=== PATIENT | female | born 1955 | race Two or more races ===

== ENCOUNTER 2024-09-11 13:45 | Outpatient (RCR) | payer OTHER, MEDICAID, SELFPAY ==
--- NOTE | 2024-09-11 14:16 | CTCFLWUP_ITS ---
Patient: ALTHEA COPPOLA : 1955 Page 7 of 8 FOLLOW UP NOTE DATE OF SERVICE: 09/11/2024 NAME: ALTHEA COPPOLA ACCOUNT: [id number] : 1955 AGE: 68 REASON FOR VISIT: Follow up INTERVAL HX Patient is doing well. She have no complains. She says she is happy that she does not have cancer anymore and does not want any biopsy at this time . she also do not want any chemotherapy . ONCOLOGY HISTORY: DATE OF DIAGNOSIS: 11/2023 colon adenocarcinoma STAGE/TNM: 11/25 stage 2 colon cancer TREATMENT HISTORY: Care?Plan Start?Date Cycle Day Intent No adjuvant therapy accepted by patient. OTHER MEDICAL HISTORY/CONDITIONS: Adenocarcinoma splenic flexure - 11/2023 HTN Hyperlipidemia Splenic flexure colectomy with side to side intracorporeal colocolonic anastaoosis 11/30/23 Right partial thyroidectomy - 7-8 yrs ago Tubal ligation - 29 yrs ago INTERVAL HISTORY: Althea Coppola is a 68-year-old S[place] speaking female with longstanding history of inter mittent rectal bleeding thought to be due to hemorrhoids had colonoscopy recently 09/05/2023: Colonoscopy? 10/19/2023: CT scan of the abdomen and pelvis with contrast 11/30/2023: Ms. Coppola had robotic assisted splenic flexure colectomy with site to side intracorpo real colocolonic anastomosis. 12/28/2023: MRI of the abdomen with IV contrast 01/23/2024: CT scan of the abdomen and pelvis with IV contrast? 01/23/2024: CT-guided percutaneous biopsy of the left lobe liver lesion? 01/25/2024: PET/CT scan? 01/15/2024: MRI of the orbits, face and neck with and without contrast? 04/10/2024: Left axilla ultrasound-guided biopsy? 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 Biopsy negative (01/23/2024) Hypertension. Hypercholesterolemia. DATE OF DIAGNOSIS: STAGE/TNM: TREATMENT HISTORY: Care?Plan Start?Date Cycle Day Intent OTHER MEDICAL HISTORY/CONDITIONS: Adenocarcinoma splenic flexure - 11/2023 HTN Hyperlipidemia Splenic flexure colectomy with side to side intracorporeal colocolonic anastaoosis 11/30/23 Right partial thyroidectomy - 7-8 yrs ago Tubal ligation - 29 yrs ago FAMILY HISTORY: Mother:?Brain?-?dx?50's Children:?Daughter?-?Thyroid?-?dx?31 SOCIAL HISTORY: Occupational?History:?Retired Education?Level:?Completed something less than 8th grade Marital?Status:? Tobacco?Use:?Denies ETOH?Use:?Denies Drug?Note:?Denies Social?History?Note:?Lives?with? 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 amlodipine - 10 mg 1 tab Daily 2. aspirin - 81 mg 1 tab Daily 3. atenolol - 50 mg 1 tab Daily 4. Cardio [place] Benefits - 667 mg (280 mg- 280 mg-107 mg) 1 Capsule Daily Medications Last Reconciled by Theresa Flores MA on 09/11/2024 ALLERGIES: atorvastatin; atorvastatin REVIEW OF SYSTEMS: A complete 14-point review of systems was performed and is negative except as noted in interval histo ry. PHYSICAL EXAMINATION: VITAL SIGNS: PAIN: 0 - No pain ECOG Performance Status: 1 - Symptomatic; ambulatory; restricted in strenuous activity Alert and oriented x4 CHEST: Clear to auscultation. No wheezes or rales audible. CARDIAC: Rhythm regular, no murmurs or gallops present. ABDOMEN: She has well-healing incisions on the abdomen. No signs of infection. Soft. No hepatomegaly. No splenomegaly. EXTREMITIES: No pedal edema or cyanosis. LABORATORY DATA: I have personally reviewed and interpreted each of the patient?s relevant lab tests, abnormal finding s are below: Date 01/01/24 ??WHITE?BLOOD?COUNT?(Thou/mm3) 9.7 ??RED?BLOOD?COUNT?(Miln/mm3) 4.71 ??HEMOGLOBIN?(gm/dl) 12.9 ??HEMATOCRIT?(%) 39.7 ??PLATELET?COUNT?(Thou/mm3) 232 ??NEUTROPHILS?%,?AUTO?(%) 63 ??LYMPH?%,?AUTO?(%) 28 ??NEUTROPHILS,?AUTO?(Thou/mm3) 6.1 IMPRESSION/PLAN: Stage II colon carcinoma s/p resection of colon cancer biopsy of liver lesion is negative MRI repeat ordered for 11/2024 Will get naterra to see residual disease as imaging have been unclear ORDERS: Mri cbc cmp and naterra RETURN TO CLINIC: After mri and naterra results BILLING AND COMPLIANCE: I reviewed external records from providers outside my specialty as summarized above. I spent a total of 50 minutes on this patient?s care on the day of their visit excluding time spent related to any bi lled procedures. This time includes time spent with the patient as well as time spent documenting in the medical record, reviewing patients records and tests, obtaining history, placing orders, communi cating with other healthcare professionals, counseling the patient, family or caregiver, and/or care coordination for the diagnoses above. Electronically Signed by: {Object.Sanct_ID*[email or web address]@M}, {Object.Sanct_ID*PnP.Suffix@U} D: {Object.Sanct_Date} T: {Object.Sanct_Time} CC: PCP: Casandra Flores Referring: Justus Del Rio This document was completed utilizing speech recognition software. Grammatical errors, random word in sertions, pronoun errors, and incomplete sentences are an occasional consequence of this system due t o software limitations, ambient noise, and hardware issues. Any formal questions or concerns about th e content, text or information contained within the body of this dictation should be directly address ed to the provider for clarification.
== END 2024-10-01 23:59 | disposition home or self-care (01) ==
LOC: SCTC 13:45
PROVIDERS: PCP Registered Nurse Community Health; Referring Provider Internal Medicine Hematology & Oncology; Visit Provider Internal Medicine Hematology & Oncology
DX: C18.5 Malignant neoplasm of splenic flexure (principal); Z90.49 Acquired absence of other specified parts of digestive tract
CPT/HCPCS: 99212; Q3014; G0463

== ENCOUNTER → 2024-09-30 | Outpatient (CLI) | payer OTHER, MEDICAID, SELFPAY ==
--- NOTE | 2024-09-30 12:20 | XR_ITS ---
Examination: Bone densitometry Date and time of exam:September 30, 2024 1231 hours INDICATIONS: Menopause age 51 vitamin D one year Technique: Lumbar spine and hip total bone mineralization values of an calculated. Peak reference and age match control results have been displayed. Findings: Lumbar spine total bone mineralization is0.758 gm/cm2. This is 2.6 standard deviations below peak reference. This is 0.7 standard deviations below age-matched controls. Hip total bone mineralization is 0.822 gm/cm2 This is 1.0 standard deviations below peak reference. This is 0.3 standard deviations above age-matched controls Impression: There is osteoporosis based on lumbar spine measurements. There is osteopenia based on hip measurements
== END | disposition home or self-care (01) ==
PROVIDERS: PCP Registered Nurse Community Health; Referring Provider Registered Nurse Community Health; Visit Provider Registered Nurse Community Health
DX: Z13.820 Encounter for screening for osteoporosis (principal); M81.0 Age-related osteoporosis without current pathological fracture; M85.88 Other specified disorders of bone density and structure, other site
CPT/HCPCS: 77080

== ENCOUNTER 2024-10-10 09:05 | Outpatient (RCR) | payer OTHER, MEDICAID, SELFPAY | END 2024-11-01 23:59 | disposition home or self-care (01) | LOC: SCTC 09:05 | PROVIDERS: PCP Registered Nurse Community Health; Referring Provider Registered Nurse Community Health; Visit Provider Internal Medicine Hematology & Oncology | DX: Z76.89 Persons encountering health services in other specified circumstances (principal) | CPT/HCPCS: 36591 ==

== ENCOUNTER → 2024-10-25 | Outpatient (CLI) | payer OTHER, MEDICAID, SELFPAY ==
--- NOTE | 2024-10-25 09:00 | XR_ITS ---
Examination: Screening digital mammography, bilateral Computer aided detection 3-D breast Tomosynthesis, bilateral Date and time of exam: October 25, 2024 0905 hours Compared to mammograms dated joint 2013 Indication: Screening Technique: Nonmagnified MLO, CC views of the breasts to been obtained, reconstructed from 3-D Tomosynthesis images. R2 computer aided detection program utilized for evaluation of suspicious masses and/or abnormal calcifications. 3-D Tomosynthesis images obtained. Findings: Scattered areas of fibroglandular density. Benign calcifications. No interval suspicious masses Impression: BI-RADS category II: Benign Findings. Recommend 1 year follow-up mammogram.
== END | disposition home or self-care (01) ==
LOC: CDIM 08:58
PROVIDERS: Referring Provider Registered Nurse Community Health; Visit Provider Registered Nurse Community Health
DX: Z12.31 Encounter for screening mammogram for malignant neoplasm of breast (principal); R92.323 Mammographic fibroglandular density, bilateral breasts; R92.1 Mammographic calcification found on diagnostic imaging of breast
CPT/HCPCS: 77063; 77067

== ENCOUNTER 2024-11-04 13:53 | Outpatient (AMB) | payer OTHER, MEDICAID, SELFPAY ==
--- NOTE | 2024-11-04 14:05 | GSCOFFNT_ITS ---
V[facility] Signs - [facility] 11/04/24 14:06 Height 1.57 m Height Method Stated Weight 72.263 kg Weight Measurement Method Standing Scale BMI 29.2 BP 171/94 H Blood Pressure Source Automatic Cuff Blood Pressure Location Left Upper Arm Position Sitting Respiration 19 Pulse 102 H Pulse Source Monitor Temp 97.6 F Temp Source Temporal Artery Scan Pulse Oximetry (%) 96 Oxygen Delivery Method Room Air Med/Allergies Allergies & Medications Allergies atorvastatin Allergy (Severe, Verified 11/04/24 14:07) Swelling of the Eye iodine Allergy (Intermediate, Verified 11/04/24 14:07) Hives Medication Reconciliation amlodipine 10 mg tablet (Norvasc) 10 mg PO HS #0 tabs 05/23/16 [History Confirmed 01/23/24] aspirin 81 mg tablet,delayed release (Aspir-Low) 81 mg PO QDAY ##30 05/25/16 [Rx Confirmed 01/23/24] Held on 01/23/24. Instructions: Resume on 01/26/24. NO TOME IZZY MEDICAMENTO HASTQA ESTA FECHA INDICADA atenolol 25 mg tablet 50 mg PO QDAY ##30 08/04/16 [History Confirmed 01/23/24] ezetimibe 10 mg tablet 10 mg PO QDAY 11/04/24 [History Confirmed 11/04/24] hydrochlorothiazide 25 mg tablet 25 mg PO QAM 11/04/24 [History Confirmed 11/04/24] lisinopril 40 mg tablet 40 mg PO QDAY 11/04/24 [History Confirmed 11/04/24] terazosin 2 mg capsule 2 mg PO QDAY 11/04/24 [History Confirmed 11/04/24] MA Intake Visit Data Collection New Patient or Established: New Patient (never been to [facility]) Seen by Clinical Staff ONLY (RN/MA): No Reason for Visit:: REFERRAL HEMORRHOIDS Pain Present Currently: No 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 PCP or OBGYN visit in last 3 months: Yes Hx Now: No Do You Feel Safe at Home: Yes Authorities Contacted: N/A Smoking Status Smoking Status: Never smoker Immunization / Flu Flu Vaccine in the Last 12 Months: No Flu Vaccine Exclusion Criteria: Refused by Patient Past Medical History Past Medical History NEUROLOGIC: Negative Neurological Disorders or Seizures CARDIAC: Positive Cardiac Disorders, Hypercholesterolemia, Hypertension and Varicose Veins; Negative Congestive Heart Failure RESPIRATORY: Negative Chronic Obstructive Pulmonary Disease (COPD) or Asthma GASTROINTESTINAL: Positive Gastrointestinal Disorders, Hemorrhoids and Gastroesophageal Reflux Disease (NO MEDS); Negative Hepatitis GENITOURINARY: Negative Genitourinary Disorders or Renal Disease REPRODUCTIVE: Positive Previous Pregnancies MUSCULOSKELETAL: Positive Arthritis ENDOCRINE: Negative Endocrine Disorders, Diabetes Mellitus Type 1 or Diabetes Mellitus Type 2 HEMATOLOGIC: Negative Blood Disorders or Sickle Cell Disease OTHER HISTORY: Positive Chicken Pox, Measles and Mumps; Negative Falls, Blood Transfusions, Blood Transfusion Reaction, Anesthesia Reactions, MRSA or Cancer Family History FAMILY HISTORY: Negative Family Cardiac Disorders Surgical History SURGICAL: Positive Thyroidectomy (1994), Bowel Surgery (11/25) and Tubal Ligation Social History SMOKING STATUS: Smoking status: Never smoker SECOND HAND EXPOSURE: second hand exposure: No ALCOHOL: Alcohol Intake: Never HOUSING: Housing: House HPI HPI Narrative 69F with history of stage II colon CA s/p robotic-assisted splenic flexure colectomy 11/2023 here for follow up of hemorrhoids. Pt reports she feels her hemorrhoids when her BP is elevated; she states they are uncomfortable but she does not have severe pain, minimal bleeding and no itching. She does sometimes have constipation and admits she does not drink much water and does not take fiber. She has not tried any remedies. Pt denies any changes in stool caliber, anorexia and unintentional weight loss. She saw oncology last month and is planned for repeat MRI to evaluate her liver lesion 11/2024 ROS Review of Systems Systems Reviewed: All systems reviewed, normal except as documented Objective/Exam General General Appearance: alert, cooperative and well groomed Resp Respiratory exam: Absent respiratory distress Abdominal Abdominal exam: Present soft; Absent distention or tenderness Assessment & Plan Diagnosis / Problem List (1) Encounter for colonoscopy due to history of colon cancer: Status: Acute Assessment & Plan: 69F with history of stage II colon CA s/p splenic flexure colectomy 11/2023 here for follow up of hemorrhoids. I explained that she is due for surveillance colonoscopy and have scheduled it for December 03. All questions were answered and pt agrees to proceed (2) Hemorrhoids: Status: Acute Assessment & Plan: Pt reports her hemorrhoid symptoms are minimal and as she has not tried all conservative measures I recommended implementing those before considering surgery. 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 3 (3911-6807) Patient Portal Questionaires Social History Living Situation History Housing: House Tobacco History Smoking Status: Never smoker Second Hand Smoke Exposure: No Alcohol History Alcohol Intake: Never Alcohol Intake Frequency Other:: special occasion Domestic Abuse History Do You Feel Safe at Home: Yes Review of Systems Report any current symptoms Only answer those that you have currently: Past Medical History Past Medical History Have you ever been diagnosed with any of the following: Neurological Problems Seizures: No Cardiology Problems Hypercholesterolemia: Yes Congestive Heart Failure: No Hypertension: Yes Varicose Veins: Yes Respiratory Problems Chronic Obstructive Pulmonary Disease (COPD): No Asthma: No Stomache/Intestinal Problems Hepatitis: No Hemorrhoids: Yes Gastroesophageal Reflux Disease: Yes (NO MEDS) Genital/Urinary Problems Renal Disease: No Reproductive Problems Previous Pregnancies: Yes Musculoskeletal Problems Arthritis: Yes Endocrine Problems Diabetes Mellitus Type 1: No Diabetes Mellitus Type 2: No Blood Problems Sickle Cell Disease: No Other Problems Falls: No Blood Transfusions: No Blood Transfusion Reaction: No Anesthesia Reactions: No MRSA: No Chicken Pox: Yes Measles: Yes Mumps: Yes Cancer: No Surgical History Thyroidectomy: Yes (1994)
[2024-11-04 14:06] VITALS: BP 171/94; PULSE 102; RESP 19; TEMP 36.4; O2SAT 96; BMI 29.2
== END 2024-11-04 14:35 | disposition home or self-care (01) ==
PROVIDERS: PCP Registered Nurse Community Health; Referring Provider Registered Nurse Community Health; Supervising Provider Surgery; Visit Provider Surgery
DX: Z01.818 Encounter for other preprocedural examination (principal); Z85.038 Personal history of other malignant neoplasm of large intestine; K64.9 Unspecified hemorrhoids
CPT/HCPCS: 99203; G0463

== ENCOUNTER 2024-12-03 11:55 | Day surgery (SDC) | payer OTHER, MEDICAID, SELFPAY ==
[2024-12-03] VITALS (11 sets, daily range): BP systolic 126–160; BP diastolic 76–102; PULSE 63–75; RESP 12–20; TEMP 36.4–37; O2SAT 95–99; BMI 28.5
[2024-12-03] MEDS: SODIUM CHLORIDE 0.9% 500 ML 500 ML 20 ML IV (14:17)
[2024-12-03] MEDS: DiphenhydrAMINE INJ 50 MG/ML VIAL 25 MG IV (14:20)
[2024-12-03] MEDS: fentaNYL CIT INJ 50 mCg/ML AMP 2ML (ASD USE ONLY) IV (14:24)
[2024-12-03] MEDS: MIDAZOLAM INJ 1 MG/ML VIAL 2 ML (ASD USE ONLY) 2 MG IV (14:24)
[2024-12-03] MEDS: LIDOCAINE JELLY 2% (Urojet) 10 ML TUBE TOP (14:26)
== END 2024-12-03 15:35 | disposition home or self-care (01) ==
PROVIDERS: PCP Registered Nurse Community Health; Referring Provider Surgery; Visit Provider Surgery
PROC: 0DBE8ZX Excision of Large Intestine, Via Natural or Artificial Opening Endoscopic, Diagnostic (ICD-10-PCS; CPT 45380; principal; 2024-12-03 13:45)
DX: Z12.11 Encounter for screening for malignant neoplasm of colon (principal); Z85.038 Personal history of other malignant neoplasm of large intestine; D12.8 Benign neoplasm of rectum; K64.9 Unspecified hemorrhoids
CPT/HCPCS: 45380; A4649; J1200; J2250; J3010; J7040

== ENCOUNTER 2024-12-16 09:57 | Outpatient (AMB) | payer OTHER, MEDICAID, SELFPAY ==
--- NOTE | 2024-12-16 10:04 | PD.GSCLVISIT ---
Vital Signs - [facility] 12/16/24 10:05 Height 1.57 m Height Method Stated Weight 71.271 kg Weight Measurement Method Standing Scale BMI 28.9 BP 156/86 H Blood Pressure Source Automatic Cuff Blood Pressure Location Left Upper Arm Position Sitting Respiration 18 Pulse 94 Pulse Source Monitor Temp 96.9 F Temp Source Temporal Artery Scan Pulse Oximetry (%) 96 Oxygen Delivery Method Room Air Med/Allergies Allergies & Medications Allergies atorvastatin Allergy (Severe, Verified 12/16/24 10:08) Swelling of the Eye iodine Allergy (Intermediate, Verified 12/16/24 10:08) Hives Medication Reconciliation ezetimibe 10 mg tablet 10 mg PO QDAY 11/04/24 [History Confirmed 12/16/24] hydrochlorothiazide 25 mg tablet 25 mg PO QAM 11/04/24 [History Confirmed 12/16/24] lisinopril 40 mg tablet 40 mg PO QDAY 11/04/24 [History Confirmed 12/16/24] MA Intake Visit Data Collection New Patient or Established: Established Patient (seen at [facility] within 3 years) Seen by Clinical Staff ONLY (RN/MA): No Reason for Visit:: RESULTS Pain Present Currently: 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 PCP or OBGYN visit in last 3 months: Yes Hx Now: No Do You Feel Safe at Home: Yes Authorities Contacted: N/A Smoking Status Smoking Status: Never smoker Immunization / Flu Flu Vaccine in the Last 12 Months: No Flu Vaccine Exclusion Criteria: No Exclusion Criteria Past Medical History Past Medical History NEUROLOGIC: Negative Neurological Disorders or Seizures CARDIAC: Positive Cardiac Disorders, Hypercholesterolemia, Hypertension and Varicose Veins; Negative Congestive Heart Failure RESPIRATORY: Negative Chronic Obstructive Pulmonary Disease (COPD) or Asthma GASTROINTESTINAL: Positive Gastrointestinal Disorders, Colorectal Cancer (Bowel resection in 11/25), Hemorrhoids and Gastroesophageal Reflux Disease (NO MEDS); Negative Hepatitis GENITOURINARY: Negative Genitourinary Disorders or Renal Disease REPRODUCTIVE: Positive Previous Pregnancies MUSCULOSKELETAL: Positive Arthritis ENDOCRINE: Negative Endocrine Disorders, Diabetes Mellitus Type 1 or Diabetes Mellitus Type 2 HEMATOLOGIC: Negative Blood Disorders or Sickle Cell Disease OTHER HISTORY: Positive Chicken Pox, Measles, Mumps, Cancer and Colorectal Cancer (Bowel resection in 11/25); Negative Falls, Blood Transfusions, Anesthesia Reactions or MRSA Family History FAMILY HISTORY: Negative Family Cardiac Disorders Surgical History SURGICAL: Positive Thyroidectomy (1994 partial right side), Bowel Surgery and Tubal Ligation Social History SMOKING STATUS: Smoking status: Never smoker SECOND HAND EXPOSURE: second hand exposure: No ALCOHOL: Alcohol Intake: Never HOUSING: Housing: House HPI HPI Narrative 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 Pt reports feeling well overall, she states she has occasional abdominal discomfort that resolves when she passes gas. Pt also states she is planned for a repeat MRI this month to evaluate her liver lesion Objective/Exam General General Appearance: alert, cooperative and well groomed Resp Respiratory exam: Absent respiratory distress Results Colonoscopy report, pathology report reviewed <1cm tubular adenoma Assessment & Plan Diagnosis / Problem List (1) Encounter to discuss colonoscopy results: Status: Acute Assessment & Plan: 69F with history of stage II colon CA s/p robotic-assisted splenic flexure colectomy 11/2023, s/p surveillance colonoscopy 11/2024 with findings of one <1cm tubular adenoma. I explained that due to her history of cancer she should undergo repeat colonoscopy in 3 years, in 2027 unless symptoms develop such as blood in stool, abdominal pain and change in bowel habits. I encouraged pt to continue follow up with her PCP and oncology and to reach out to me with any concerns or questions Advanced Care Planning Advance care planning discussed with:: patient Office Procedures GNS Level of Care Nursing/Assessment Patient Status: Established Patient Nursing Assessment/Reassesment: Medication Reconciliation, Update PMH in EMR and Vital Signs Coordination of Care: Complex Care and Chronic Disease 1-5, Consent,records obtained, informed consent, Education Simp Pt/Fam, Results/Orders obtained and Staff clarify orders Special Needs: Language special needs Established Patient Charge Established Patient Point Assignment: 90 Established Patient Point Charge: EP Level 3 (80-115) Patient Portal Questionaires Social History Living Situation History Housing: House Tobacco History Smoking Status: Never smoker Second Hand Smoke Exposure: No Alcohol History Alcohol Intake: Never Alcohol Intake Frequency Other:: special occasion Domestic Abuse History Do You Feel Safe at Home: Yes Review of Systems Report any current symptoms Only answer those that you have currently: Past Medical History Past Medical History Have you ever been diagnosed with any of the following: Neurological Problems Seizures: No Cardiology Problems Hypercholesterolemia: Yes Congestive Heart Failure: No Hypertension: Yes Varicose Veins: Yes Respiratory Problems Chronic Obstructive Pulmonary Disease (COPD): No Asthma: No Stomache/Intestinal Problems Hepatitis: No Colorectal Cancer: Yes (Bowel resection in 11/25) Hemorrhoids: Yes Gastroesophageal Reflux Disease: Yes (NO MEDS) Genital/Urinary Problems Renal Disease: No Reproductive Problems Previous Pregnancies: Yes Musculoskeletal Problems Arthritis: Yes Endocrine Problems Diabetes Mellitus Type 1: No Diabetes Mellitus Type 2: No Blood Problems Sickle Cell Disease: No Other Problems Falls: No Blood Transfusions: No Anesthesia Reactions: No MRSA: No Chicken Pox: Yes Measles: Yes Mumps: Yes Cancer: Yes Surgical History Thyroidectomy: Yes (1994 partial right side)
[2024-12-16 10:05] VITALS: BP 156/86; PULSE 94; RESP 18; TEMP 36.1; O2SAT 96; BMI 28.9
== END 2024-12-16 10:24 | disposition home or self-care (01) ==
LOC: HODSRG 09:57
PROVIDERS: Supervising Provider Surgery; Visit Provider Surgery
DX: Z71.2 Person consulting for explanation of examination or test findings (principal); D12.6 Benign neoplasm of colon, unspecified; Z85.038 Personal history of other malignant neoplasm of large intestine
CPT/HCPCS: 99213; G0463

== ENCOUNTER → 2025-01-03 | Outpatient (CLI) | payer OTHER, MEDICAID, SELFPAY ==
--- NOTE | 2025-01-03 15:30 | XR_ITS ---
Examination: MRI abdomen with intravenous contrast. MRI abdomen without intravenous contrast. Date and time of exam: January 03, 2025 1606 hours Comparison MRI abdomen pre and post contrast July 18, 2024 INDICATIONS: Diagnosis malignant neoplasm of the colon surgery November 2023, 8 mm anterior left lobe liver lesion which shows mild enhancement on MR abdomen liver July 18, 2024 Technique: Multiple axial, sagittal and coronal sections of the abdomen obtained. Transverse images, TR 6020, TE 107. T1 weighted transverse images, TR 582, TE 9.5. T2-weighted sagittal images, TR 4000, TE 105. T2-weighted sagittal images, TR 4000, TE 5. Coronal images, TR 4210, TE 107. Axial and coronal images are obtained post 19 cc intravenous injection, gadolinium. Findings: Stable 8 mm left lobe liver lesion with increased signal on the T2-weighted precontrast images This lesion again demonstrates mild diffuse enhancement on the postcontrast images Gallbladder is not distended Spleen is not enlarged No extrahepatic biliary tract dilatation No pancreatic mass or peripancreatic edema Aorta normal size No hydronephrosis No ascites No abdominal lymphadenopathy IMPRESSION: Stable 8 mm left lobe liver lesion with mild diffuse enhancement on the postcontrast images Scan appearance favors benign lesion No interval liver lesions diagnostic for metastatic liver disease
== END | disposition home or self-care (01) ==
PROVIDERS: PCP Physician Assistant; Referring Provider Internal Medicine Hematology & Oncology; Visit Provider Internal Medicine Hematology & Oncology
DX: K76.9 Liver disease, unspecified (principal); C18.9 Malignant neoplasm of colon, unspecified
CPT/HCPCS: 74183; A4649; A9579

== ENCOUNTER 2025-03-06 13:37 | Outpatient (RCR) | payer OTHER, MEDICAID, SELFPAY ==
[2025-03-03 09:02] LABS: Basophils % (Auto) 1 % (0-2.5); Eosinophils # (Auto) 0.3 Thou/mm3 (0.0-0.5); Eosinophils % (Auto) 4 % (0-10); Hematocrit 36.9 % (36.0-46.0); Immature Granulocytes % (Auto) 0 % (0-0); Immature Granulocytes Auto 0.02 Thou/mm3 (0.00-0.00); Lymphocytes # (Auto) 2.6 Thou/mm3 (1.0-4.8); Lymphocytes % (Auto) 38 % (10-50); Mean Corpuscular HGB Conc 35.2 g/dl (31.0-37.0); Mean Corpuscular Hemoglobin 29.5 pg (25.0-35.0); Mean Corpuscular Volume 84 fL (80-100); Monocytes # (Auto) 0.5 Thou/mm3 (0.0-0.8); Monocytes % (Auto) 7 % (0-12); Neutrophils # (Auto) 3.4 Thou/mm3 (1.8-7.7); Neutrophils % (Auto) 50 % (37-80); Nucleated Red Blood Cell % 0 /100 WBC (0); Platelet Count 235 Thou/mm3 (140-440); RDW Standard Deviation 39.4 fL (36.4-46.3); Red Blood Count 4.41 Miln/mm3 (4.00-5.20); White Blood Count 6.8 Thou/mm3 (3.6-11.0)
[2025-03-03 09:29] LABS: Alanine Aminotransferase 27 U/L (10-49); Albumin, Serum 4.6 gm/dL (3.4-4.8); Albumin/Globulin Ratio 1.8 (1.2-2.2); Alkaline Phosphatase 84 U/L (46-116); Anion Gap 11 (7-16); Aspartate Amino Transferase 30 U/L (0-34); BUN/Creatinine Ratio 20 Ratio (12-20); Bilirubin,Total 0.5 mg/dL (0.3-1.2); Blood Urea Nitrogen 14 mg/dL (9-23); Calcium 9.5 mg/dL (8.3-10.6); Calcium (Corrected) 9.5 mg/dL (8.5-10.1); Carbon Dioxide 25.4 mMol/L (20.0-31.0); Chloride 102 mMol/L (98-107); Creatinine (Component) 0.7 mg/dL (0.6-1.3); Globulin 2.5 gm/dL (2.3-3.5); Glucose 99 mg/dL (74-106); Osmolality,Calculated 276 (275-295); Potassium 3.5 mMol/L (3.4-5.1); Sodium 138 mMol/L (136-145); Total Protein 7.1 gm/dL (5.7-8.2); eGFR > 60 See Note
--- NOTE | 2025-03-06 16:32 | CTCFLWUP_ITS ---
Patient: ALTHEA COPPOLA : 1955 Page 2 of 2 FOLLOW UP NOTE DATE OF SERVICE: 03/06/2025 NAME: ALTHEA COPPOLA ACCOUNT: [id number] : 1955 AGE: 69 INTERVAL HISTORY: Subjective: Chief Complaint Follow-up visit for stage 2 colon cancer History of Present Illness Althea is a patient with a history of stage 2 colon cancer, presenting for follow-up. She has no current complaints or symptoms. The patient's recent test results have all come back negative for cancer. An MRI of her liver showed no abnormalities. Althea had her last colonoscopy in November of this year, which was also negative. Her blood work results are reported to be excellent. The patient's overall health status appears to be stable, with no new symptoms or concerns reported since her last visit. Althea is adhering to her follow-up care plan, which includes regular blood tests every 3 months and oncology visits every 6 months. She is also following up with a cycle touring guide for colonoscopies, with the next one scheduled in 3 years. Objective: Laboratory, Imaging, and Diagnostic Test Results - MRI of liver: No abnormalities detected - Colonoscopy (November 2024): Negative for cancer - Blood work: All results reported as excellent - Follow up with oncology in 6 [id number]/2023: Colonoscopy? 10/19/2023: CT scan of the abdomen and pelvis with contrast 11/30/2023: Ms. Coppola had robotic assisted splenic flexure colectomy with site to side intracorporeal colocolonic anastomosis. 12/28/2023: MRI of the abdomen with IV contrast 01/23/2024: CT scan of the abdomen and pelvis with IV contrast? 01/23/2024: CT-guided percutaneous biopsy of the left lobe liver lesion? 01/25/2024: PET/CT scan? 01/15/2024: MRI of the orbits, face and neck with and without contrast? 04/10/2024: Left axilla ultrasound-guided biopsy? ONCOLOGY HISTORY: DATE OF DIAGNOSIS: 11/2023 colon adenocarcinoma STAGE/TNM: 11/25 stage 2 colon cancer TREATMENT HISTORY: Care?Plan Start?Date Cycle Day Intent HISTORY OF PRESENT ILLNESS: OTHER MEDICAL HISTORY/CONDITIONS: Adenocarcinoma splenic flexure - 11/2023 HTN Hyperlipidemia Splenic flexure colectomy with side to side intracorporeal colocolonic anastaoosis 11/30/23 Right partial thyroidectomy - 7-8 yrs ago Tubal ligation - 29 yrs ago FAMILY HISTORY: Mother:?Brain?-?dx?50's Children:?Daughter?-?Thyroid?-?dx?31 SOCIAL HISTORY: Occupational?History:?Retired Education?Level:?Completed something less than 8th grade Marital?Status:? Tobacco?Use:?Denies ETOH?Use:?Denies Drug?Note:?Denies Social?History?Note:?Lives?with? [facility] HISTORY: Menarche?-?Age:?18 Menopause:?57 :?17 Live?Births:?15 Age?1st?:?20 Gynecological?Note:?2?miscarriages MEDICATIONS: 1. aspirin - 81 mg 1 tab Daily 2. ezetimibe - 10 mg 1 tab Daily 3. hydrochlorothiazide - 25 mg 1 tab Daily 4. lisinopril - 40 mg 1 tab Daily Medications Last Reconciled by Theresa Flores MA on 03/06/2025 ALLERGIES: atorvastatin; atorvastatin REVIEW OF SYSTEMS: A complete 14-point review of systems was performed and is negative except as noted in interval history. PHYSICAL EXAMINATION: VITAL SIGNS: Temperature?98, B/P?172/93, Oxygen?Saturation?97% Weight?154?lbs (Change?since?03/03/25:?-2.8?lbs) PAIN: 0 - No pain ECOG Performance Status: 0 - Asymptomatic and fully active Alert and oriented x4 CHEST: Clear to auscultation. No wheezes or rales audible. CARDIAC: Rhythm regular, no murmurs or gallops present. ABDOMEN: She has well-healing incisions on the abdomen. No signs of infection. Soft. No hepatomegaly. No splenomegaly. EXTREMITIES: No pedal edema or cyanosis. LABORATORY DATA: I have personally reviewed and interpreted each of the patient?s relevant lab tests, abnormal findings are below: Date 01/01/24 03/03/25 ??WHITE?BLOOD?COUNT?(Thou/mm3) 9.7 6.8 ??RED?BLOOD?COUNT?(Miln/mm3) 4.71 4.41 ??HEMOGLOBIN?(gm/dl) 12.9 13.0 ??HEMATOCRIT?(%) 39.7 36.9 ??PLATELET?COUNT?(Thou/mm3) 232 235 ??NEUTROPHILS?%,?AUTO?(%) 63 50 ??LYMPH?%,?AUTO?(%) 28 38 ??NEUTROPHILS,?AUTO?(Thou/mm3) 6.1 3.4 ??GLUCOSE,RANDOM?(mg/dL) 90 99 ??BLOOD?UREA?NITROGEN?(mg/dL) 17 14 ??CREATININE?(mg/dL) 0.80 0.70 ??SODIUM?(mmol/L) 136 138 ??POTASSIUM?(mmol/L) 4.0 3.5 ??CHLORIDE?(mmol/L) 104 102 ??CrCl?(CandG)?(ml/min) 62.83 72.10 ??AST/SGOT?(Unit/L) 27 30 ??ALT/SGPT?(Unit/L) 25 27 ??ALKALINE?PHOSPHATASE?(Unit/L) 114 84 ??BILIRUBIN,?TOTAL?(mg/dL) 0.5 0.5 ??PROTEIN?TOTAL?(gm/dl) 8.0 7.1 ??ALBUMIN,?SERUM?(gm/dl) 4.7 4.6 ??GLOBULIN?(gm/dl) 3.3 2.5 ??ALBUMIN/GLOBULIN?RATIO 1.4 1.8 ??CALCIUM,?SERUM?(mg/dL) 10.2 9.5 ??CALCIUM?SERUM?(CORRECTED)?(mg/dL) 10.2?H 9.5 ASSESSMENT/PLAN: Stage II colon carcinoma s/p resection of colon cancer biopsy of liver lesion is negative MRI repeat ordered for 11/2024 Althea, a patient with a history of stage 2 colon cancer, presents for follow-up after recent negative cancer screening results. Patient has a history of stage 2 colon cancer with a current risk of recurrence less than 30%. Recent screening tests, including blood work and liver MRI, have all returned negative for cancer. The patient's last colonoscopy was performed in November of this year, also with negative results. Current blood work results are reported as excellent. Plan: - Continue cancer surveillance protocol: - Jennifer blood test every 3 months, to be performed at patient's home - Regular blood work at clinic visits - Follow-up appointments every 6 months for the first five years - Next colonoscopy in 3 years as recommended by cycle touring guide ORDERS: Order # Description [id number] MD Follow Up 6 Month + CBC with Auto Diff + CEA RETURN TO CLINIC: BILLING AND COMPLIANCE: I reviewed external records from providers outside my specialty as summarized above. I spent a total of 50 minutes on this patient?s care on the day of their visit excluding time spent related to any billed procedures. This time includes time spent with the patient as well as time spent documenting in the medical record, reviewing patients records and tests, obtaining history, placing orders, communicating with other healthcare professionals, counseling the patient, family or caregiver, and/or care coordination for the diagnoses above. Electronically Signed by: Justus Del Rio MD T: 4:30 PM CC: PCP: Justus Del Rio Referring: Justus Del Rio This document was completed utilizing speech recognition software. Grammatical errors, random word insertions, pronoun errors, and incomplete sentences are an occasional consequence of this system due to software limitations, ambient noise, and hardware issues. Any formal questions or concerns about the content, text or information contained within the body of this dictation should be directly addressed to the provider for clarification.
== END 2025-03-31 23:59 | disposition home or self-care (01) ==
LOC: SCTC 13:37
PROVIDERS: PCP Physician Assistant; Referring Provider Internal Medicine Hematology & Oncology; Visit Provider Internal Medicine Hematology & Oncology
DX: C18.5 Malignant neoplasm of splenic flexure (principal); Z90.49 Acquired absence of other specified parts of digestive tract
CPT/HCPCS: 36591; 80053; 85025; 99213; G0463